=== PATIENT | female | born 1965 | race African-American/Black ===

== ENCOUNTER → 2017-02-19 | Outpatient (CLI) | payer OTHER ==
--- NOTE | ~2017-02-19 | US5 ---
[facility] A Service of [facility] & [facility] RADIOLOGY TEXT RESULTS PATIENT: ADRIAN SIMMS LOCATION: [facility] : 61 UNIT #: [id number] AGE: [address]: DIETER GLEZ MD SEX: F ORDER DR: [id number] [facility] [address] [place], [place] [address] [id number] O MR#: [id number] Acc #: [id number] NAME: ADRIAN SIMMS : 1965 SEX: F STUDY DATE/TIME: 02/19/2017 10:45 UNIT: [facility]US ROOM: STUDY DESCRIPTION: US Abdominal Complete Attending Physician: Dieter Glez M.D. Referring Physician: Dieter Glez M.D. Ordering Physician: Dieter Glez M.D. Primary Care Physician: Dieter Glez M.D. MEDICAL IMAGING REPORT This report is preliminary unless electronic signature is present EXAM Abdominal ultrasound complete 02/19/2017 HISTORY Epigastric abdomen pain off and on for 1 week. No known injury. FINDINGS There is a 3.6 cm x 2.2 cm x 2.4 cm septated cyst within the right hepatic lobe. The liver is otherwise homogeneous in echotexture. No intra- or extrahepatic biliary ductal dilatation is seen. The gallbladder is normal with no evidence of cholelithiasis, wall thickening or pericholecystic fluid. The common duct measures 3 mm. The pancreas and spleen are normal. The spleen measures 7 cm in greatest diameter. The visualized portions of the abdominal aorta and inferior vena cava are within normal limits. IMPRESSION 1. 3.6 cm septated cyst right hepatic lobe. 2. Normal gallbladder. Dictated by... Case Macias M.D. THIS IS AN ELECTRONICALLY VERIFIED REPORT Case Macias M.D. at 02/20/2017 3:48 PM KYLEIGH/chivo TD: 02/20/2017 13:34 JOB #: [id number] MEDICAL IMAGING REPORT Page 1 of 1 COPY
== END | disposition home or self-care (01) ==
LOC: CGUS 10:29
DX: R10.13 Epigastric pain (principal); K76.89 Other specified diseases of liver
CPT/HCPCS: 76700